=== PATIENT | male | born 1970 | race Hispanic/Latino ===

== ENCOUNTER → 2018-08-14 | Outpatient (CLI) | payer OTHER ==
--- NOTE | 2018-08-14 12:35 | Diagnostic Imaging Report ---
Exam: Cervical spine 3 views History: Neck pain Comparison: None. Findings: The cervical spine is visualized from the skull base to the top of C7 on the lateral radiograph, with intact cervicothoracic junction seen on the swimmer's radiograph. No acute, displaced fracture or subluxation. Soft tissue, ligamentous, and spinal cord abnormalities cannot be excluded on the basis of plain radiography. Intervertebral disc spaces and uncovertebral joints are well-maintained. Prevertebral soft tissues are of normal thickness. Atlantoaxial interval is within normal limits. Impression: No acute osseous abnormality. Signed by: Dr. Efra Hoover M.D. on 08/14/2018 12:32 PM
== END ==
LOC: RAD 11:17
PROVIDERS: ATTEND Internal Medicine
DX: M54.2 Cervicalgia (principal)
CPT/HCPCS: 72040

== ENCOUNTER → 2018-09-05 | Outpatient (CLI) | payer OTHER ==
--- NOTE | 2018-09-05 11:10 | Diagnostic Imaging Report ---
Exam: Lumbar spine complete History: Low back pain Comparison: None. Findings: There are 5 nonrib-bearing lumbar-type vertebral bodies. No acute, displaced fracture or subluxation. No pars interarticularis defects are identified on the oblique radiographs. There is mild bilateral facet arthropathy at L5-S1. Intervertebral disc spaces are well-maintained. Sacroiliac joints are well preserved. Impression: Mild bilateral facet arthropathy at the lumbosacral junction. Signed by: Dr. Efra Hoover M.D. on 09/05/2018 11:07 AM
== END ==
LOC: RAD 10:24
PROVIDERS: ATTEND Internal Medicine
DX: M54.5 Low back pain (principal)
CPT/HCPCS: 72110